=== PATIENT | male | born 1970 | race African-American/Black ===

== ENCOUNTER 2018-05-05 18:56 | Emergency (ER) | payer OTHER ==
--- NOTE | 2018-05-05 19:51 | RAD ---
LEFT KNEE: 05/05/18 Five views. HISTORY: Knee pain. There are mild degenerative changes present. The joint spaces are preserved. Mild spurring seen from the femoral condyles and tibial spines. Evidence of small joint effusion. No fracture or acute abnorm ality. IMPRESSION: Mild degenerative change with evidence of joint effusion. POS: [facility]
[2018-05-05] MEDS ORDERED: Ketorolac Tromethamine 30 MG/ML VIAL ONE (19:56)
== END 2018-05-05 20:30 | disposition home or self-care (01) ==
LOC: ERS 18:56
DX: M25.562 Pain in left knee (principal); I10 Essential (primary) hypertension; F17.210 Nicotine dependence, cigarettes, uncomplicated; F32.9 Major depressive disorder, single episode, unspecified
CPT/HCPCS: 96372; J1885

== ENCOUNTER 2018-06-14 21:30 | Emergency (ER) | payer OTHER ==
--- NOTE | 2018-06-14 23:32 | RAD ---
RIGHT KNEE FOUR VIEW SERIES: INDICATIONS: Right knee pain without injury. FINDINGS: There is mild osteoarthritis. No joint capsular distention. A patellar enthesophyte is seen. IMPRESSION: No acute osseous abnormality of the right knee. POS: [facility]
== END 2018-06-14 23:56 | disposition home or self-care (01) ==
LOC: ERS 21:30
DX: S83.91XA Sprain of unspecified site of right knee, initial encounter (principal); I10 Essential (primary) hypertension; F32.9 Major depressive disorder, single episode, unspecified; F17.210 Nicotine dependence, cigarettes, uncomplicated; Z71.6 Tobacco abuse counseling; X58.XXXA Exposure to other specified factors, initial encounter
CPT/HCPCS: 99406

== ENCOUNTER 2019-06-15 19:24 | Emergency (ER) | payer OTHER ==
[2019-06-15 19:50] LABS: Hemoglobin 14.3 g/dL (14.0-18.0); Mean Corpuscular HGB CONC 35.6 g/dL (32.0-36.0); Mean Corpuscular Hemoglobin 37.3 pg (27.0-31.0); Mean Platelet Volume 6.7 fL (7.4-10.4); Platelet Count 234 thou/uL (130-400); RBC Distribution Width 11.1 % (11.5-14.5); Red Blood Cell (RBC) Count 3.82 mill/uL (4.70-6.10); White Blood Cell (WBC) Count 8.6 thou/uL (4.8-10.8)
[2019-06-15 20:06] LABS: #Basophils 0.1 thou/uL (0.0-0.2); #Eosinphils 0.3 thou/uL (0.0-0.7); #Lymphocytes 2.3 thou/uL (1.20-3.40); #Monocytes 0.4 thou/uL (0.11-0.59); #Neutrophils 5.5 thou/uL (1.40-6.50); %Basophils 0.8 % (0.0-1.0); %Eosinophils 4.1 % (0.0-10.0); %Lymphocytes 26.2 % (21.0-51.0); %Monocytes 4.9 % (0.0-10.0)
[2019-06-15 20:10] LABS: ALT (SGPT) 15 U/L (8-55); AST (SGOT) 18 U/L (5-34); Albumin 4.1 g/dL (3.5-5.0); Alkaline Phosphatase 50 U/L (40-150); Anion Gap 10 mmol/L (10-20); BUN (Urea Nitrogen) 18 mg/dL (8.9-20.6); Bilirubin, Total 0.6 mg/dL (0.2-1.2); CK (CPK) 361 U/L (30-200); Calc. Creatinine Clearance 0 mL/min (70-130); Calcium 9.3 mg/dL (7.8-10.44); Carbon Dioxide 26 mmol/L (22-29); Chloride 106 mmol/L (98-107); Estimated GFR-MDRD 88; Globulin 2.1 g/dL (2.4-3.5); Glucose 115 mg/dL (70-105); Potassium 4.2 mmol/L (3.5-5.1); Protein, Total 6.2 g/dL (6.0-8.3); Sodium 138 mmol/L (136-145)
--- NOTE | 2019-06-15 21:13 | CT ---
CT Brain WO Con HISTORY: Syncope COMPARISON: None. FINDINGS: The ventricular and cisternal system is within normal limits. There are no signs of intrace rebral hemorrhage or extra-axial fluid collections. The mastoid air cells and visualized sinuses are clear. IMPRESSION: No acute intracranial abnormalities.
== END 2019-06-15 22:49 | disposition home or self-care (01) ==
LOC: ERS 19:24
DX: T67.5XXA Heat exhaustion, unspecified, initial encounter (principal); E86.0 Dehydration; I10 Essential (primary) hypertension; F32.9 Major depressive disorder, single episode, unspecified; F17.210 Nicotine dependence, cigarettes, uncomplicated; X30.XXXA Exposure to excessive natural heat, initial encounter
CPT/HCPCS: 36415; 70450; 80053; 82550; 84484; 85025; 93005; 96360

== ENCOUNTER 2019-08-04 13:55 | Emergency (ER) | payer SELFPAY ==
[2019-08-04] MEDS ORDERED: diphenhydrAMINE 50 MG CAP ONE (14:31)
[2019-08-04] MEDS ORDERED: Dexamethasone 10 MG/ML VIAL ONE (14:34)
[2019-08-04] MEDS ORDERED: Famotidine 20 MG TAB ONE (14:34)
== END 2019-08-04 15:26 | disposition home or self-care (01) ==
LOC: ERS 13:55
DX: H02.841 Edema of right upper eyelid (principal); I10 Essential (primary) hypertension; F32.9 Major depressive disorder, single episode, unspecified; F17.210 Nicotine dependence, cigarettes, uncomplicated
CPT/HCPCS: 99283; J1100; Q0163

== ENCOUNTER 2019-08-17 14:32 | Observation (INO) | payer SELFPAY ==
[2019-08-17] MEDS ORDERED: Aspirin Chewable 81 MG TAB ONE (15:30)
[2019-08-17 16:00] LABS: #Basophils 0.1 thou/uL (0.0-0.2); #Eosinphils 0.3 thou/uL (0.0-0.7); #Lymphocytes 1.8 thou/uL (1.20-3.40); #Monocytes 0.3 thou/uL (0.11-0.59); %Basophils 0.8 % (0.0-1.0); %Eosinophils 3.4 % (0.0-10.0); %Lymphocytes 23.6 % (21.0-51.0); %Monocytes 4.5 % (0.0-10.0); %Neutrophils 67.7 % (42.0-75.0); Hemoglobin 14.4 g/dL (14.0-18.0); Mean Corpuscular HGB CONC 33.8 g/dL (32.0-36.0); Mean Corpuscular Hemoglobin 36.3 pg (27.0-31.0); Mean Platelet Volume 7.5 fL (7.4-10.4); Platelet Count 220 thou/uL (130-400); RBC Distribution Width 11.4 % (11.5-14.5); Red Blood Cell (RBC) Count 3.95 mill/uL (4.70-6.10); White Blood Cell (WBC) Count 7.4 thou/uL (4.8-10.8)
--- NOTE | 2019-08-17 16:17 | RAD ---
PORTABLE CHEST: Date: 08/17/19 HISTORY: Hypertension and dizziness. Headache. FINDINGS: Lung tan clear. Heart and mediastinum appear normal. Vasculature normal. IMPRESSION: No acute findings. POS: [facility]
[2019-08-17 16:20] LABS: ALT (SGPT) 17 U/L (8-55); AST (SGOT) 22 U/L (5-34); Albumin 3.9 g/dL (3.5-5.0); Alkaline Phosphatase 46 U/L (40-110); Anion Gap 10 mmol/L (10-20); BUN (Urea Nitrogen) 16 mg/dL (8.9-20.6); Bilirubin, Total 0.8 mg/dL (0.2-1.2); Calc. Creatinine Clearance 0 mL/min (70-130); Calcium 8.8 mg/dL (7.8-10.44); Carbon Dioxide 25 mmol/L (22-29); Chloride 110 mmol/L (98-107); Estimated GFR-MDRD Greater than 90; Globulin 2.1 g/dL (2.4-3.5); Glucose 87 mg/dL (70-105); Potassium 3.8 mmol/L (3.5-5.1); Sodium 141 mmol/L (136-145)
[2019-08-17 16:21] LABS: MDiff Complete? YES; Macrocytosis SLIGHT = 6-15 cells (100X) (0-5/hpf); Platelet Morphology Comment Appears Adequate
--- NOTE | 2019-08-17 16:58 | PDOC.FPRHP ---
- History of Present Illness Chief Complaint: chest pain History of Present Illness: This is a 49yo AA M presenting today for a CC of chest pain. Onset of pain started yesterday during work. It started out with dizziness and seeing spots. It was worse while bending forward. He states then the chest pain came on. He describes this as squeezing type of pain. Associated with L arm numbness and tingling. It did get better after resting. 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 He states he took a couple garlic pills after work and he felt better throughout the night. This morning when he woke up he did not go to work because he started feeling the same type of chest pressure. Patient states that he had a heart attack about 8 years ago - "mild heart attack " and "light stroke." Those events happened at the same time. He had pain in his arm at that time. This episode feels different than the previous heart attack and stroke. At that time he was using drugs and not taking care of himself at that time. Admits to cocaine use at that time. Denies current drug use. Smoke 1pack/day for most of his life. Patient has hx of HTN and he was taking lisinopril for it but has not taken in 3 years. Endorses stress at home - his is and due in 2 months. Currently having chest pain 4/10 but at its worst 10/10. Last saw a PCP in about 5 years. ED Course: ASA, nitro CXR neg for acute process - Allergies/Adverse Reactions Allergies Allergy/AdvReac Type Severity Reaction Status Date / Time No Known Allergies Allergy Unverified 08/17/19 17:36 - Home Medications Medication Instructions Recorded Confirmed Type Lisinopril 10 mg PO DAILY 10/13/15 10/13/15 History - History PMHx: HTN, previous AR/CVA, "borderline diabetic", previous [facility] pt for " bipolar depression" and anxiety PSHx: laparoscopic cholecystectomy FHx: Mother - HTN Uncle: of cancer Social: 1pack/day for 30 years; occasional alcohol; denies current drug use; previous used cocaine and other illicit drugs which caused his first AR - Review of Systems General: denies: fever/chills, weight/appetite/sleep changes, night sweats, fatigue Eyes: reports: vision changes (floaters) ENT: denies: nasal congestion, rhinorrhea Respiratory: denies: cough, congestion, shortness of breath, exercise intolerance Cardiovascular: reports: chest pain. denies: palpitation, edema, paroxysmal nocturnal dyspnea, orthopnea Gastrointestinal: denies: nausea, vomiting, diarrhea, constipation, abdominal pain Genitourinary: reports: polyuria (polydipsia). denies: dysuria Skin: denies: rashes, lesions Musculoskeletal: denies: swelling Neurological: denies: numbness, seizure, weakness Psychological: reports: anxiety, other (Hx of bipolar d/o, previous [facility] patient ). denies: depression - Vital signs BP: 152/99, Pulse: 70, Resp: 17, Pain: 0, O2 sat: 99 on RA, Time: 08/17/2019 16: 26. Weight 84kg - Physical Exam Constitutional: NAD, awake, alert and oriented, well developed HEENT: normocephalic and atraumatic, EOMI, no scleral icterus, grossly normal vision, MMM, good dention, other (mild exophthalmos) Neck: supple, FROM, no thyromegaly Chest: no-tender to palpation, no lesions Heart: RRR, normal S1/S2, no murmurs/rubs/gallops, pulses present, no edema Lungs: CTAB, no respiratory distress, good air movement, no rales/rhonchi, no wheezing, no retractions Abdomen: soft, non-tender, bowel sounds present, no masses/distention Musculoskeletal: normal structure, normal tone, ROM grossly normal, other ( tender to palpation over epigastric area) Neurological: no focal deficit, CN II-XII intact Skin: no rash/lesions, good turgor, capillary refill <2 seconds Heme/Lymphatic: no unusual bruising or bleeding, no purpura, no petechia Psychiatric: normal mood and affect, good judgment and insight, intact recent and remote memory FMR H&P: Results - Labs Result Diagrams: 08/17/19 15:31 08/17/19 15:31 Lab results: WBC 7.4 thou/uL (4.8-10.8) 08/17/19 15:31 Hgb 14.4 g/dL (14.0-18.0) 08/17/19 15:31 Hct 42.4 % (42.0-52.0) 08/17/19 15:31 MCV 107.0 fL (78.0-98.0) H 08/17/19 15:31 Plt Count 220 thou/uL (130-400) 08/17/19 15:31 Neutrophils % 67.7 % (42.0-75.0) 08/17/19 15:31 Sodium 141 mmol/L (136-145) 08/17/19 15:31 Potassium 3.8 mmol/L (3.5-5.1) 08/17/19 15:31 Chloride 110 mmol/L (98-107) H 08/17/19 15:31 Carbon Dioxide 25 mmol/L (22-29) 08/17/19 15:31 BUN 16 mg/dL (8.9-20.6) 08/17/19 15:31 Creatinine 0.88 mg/dL (0.7-1.3) 08/17/19 15:31 Glucose 87 mg/dL (70-105) 08/17/19 15:31 Calcium 8.8 mg/dL (7.8-10.44) 08/17/19 15:31 Total Bilirubin 0.8 mg/dL (0.2-1.2) 08/17/19 15:31 AST 22 U/L (5-34) 08/17/19 15:31 ALT 17 U/L (8-55) 08/17/19 15:31 Alkaline Phosphatase 46 U/L (40-110) 08/17/19 15:31 Serum Total Protein 6.0 g/dL (6.0-8.3) 08/17/19 15:31 Albumin 3.9 g/dL (3.5-5.0) 08/17/19 15:31 - EKG Interpretation EKG: LVH, no ST changes. - Radiology Interpretation Chest x-ray Status: report reviewed by me (no acute process) FMR H&P: A/P - Problem List (1) Chest pain Current Visit: Yes Status: Acute Code(s): R07.9 - CHEST PAIN, UNSPECIFIED (2) Hypertension Current Visit: Yes Status: Acute Code(s): I10 - ESSENTIAL (PRIMARY) HYPERTENSION (3) Tobacco abuse Current Visit: Yes Status: Acute Code(s): Z72.0 - TOBACCO USE (4) History of drug abuse in remission Current Visit: Yes Status: Acute Code(s): F19.11 - OTHER PSYCHOACTIVE SUBSTANCE ABUSE, IN REMISSION - Plan 49 yo Male w/ history of previous AR and "mild stroke"/possible syncope: Atypical Chest Pain - EKG showing LVH. Trop neg x1. HEART SCORE 4 - mod risk. - Will admit to tele, obs - Trend troponins - NPO for stress in the AM - Risk stratify with FLP, TSH, A1c, Mg, phos - Will order lipase 2/2 TTP over epigastric area HTN - Will continue to monitor. If elevated can start lisinopril Tobacco Abuse - Coding Manager on cessation - Nicotine patch PRN Hx of Drug use - aware Code: FULL VTE ppx: SCDs Dispo: admit to tele obs; LOS < 48hrs Case discussed with Dr. Mcpherson Disposition/LOS: telemetry obs FMR H&P: Upper Level - Pertinent history 49yo M with chest pain for the past 2 days. Onset yesterday during work. 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 Patient states pain is pressure like and goes into L arm. Associated with L arm numbness and tingling. No SOB, NVD, no fever/chills. Hx of AR/stroke in the past. Current smoker. Denies weakness. Not necessarily worse with exertion, has come and gone over the 2 days. Denies swelling in extremities. See campus recruiting internship note for full hx. - Pertinent findings PE: General: NAD, well developed HEENT: normocephalic, atraumatic, exopthalmos b/l Cards: NSR, no murmurs, rubs or gallops; no JVD Resp: CTAB Abd: mild TTP of mid epigastrum, no javier, normal BS MSK: no LE swelling - Plan Date/Time: 08/17/19 1652 ISadie MD, have evaluated this patient and agree with findings/plan as outlined by campus recruiting internship resident. Pertinent changes/additions are listed here. Atypical Chest Pain, ACS r/o EKG: LVH, Trop neg x1, CXR normal. HEART SCORE 5- mod risk - Trend trops - schedule exercise stress in AM - UDS pending for hx of drug abuse - Risk stratify: FLP, A1c, TSH - Will order lipase due to TTP of midepigastrum HTN - not currently on meds. Will continue to monitor and start lisinopril if elevated Hx of tobacco use - nicotine patch; certified lactation counselor cessation Hx of drug use - UDS pending Dispo: admit to tele, obs Code: FULL Case discussed with [place] Addendum - Attending - Attending Attestation Date/Time: 08/17/191941 I personally evaluated the patient and discussed the management with Dr. Ferraro and Dr. Bailey I agree with the History, Examination, Assessment and Plan documented above with any addition or exceptions noted below. Chest pain rule out. Stress in AM. ABrayMD
[2019-08-17] MEDS ORDERED: Nitroglycerin 2% Ointment 1 INCH/1 GM Packet ONE (17:07)
[2019-08-17] MEDS ORDERED: Nitroglycerin 0.4 MG TAB (25 Tab Bottle) PO PRN (17:29)
[2019-08-17] MEDS ORDERED: Ondansetron PF 4 MG/2 ML Vial IVP PRN (17:29)
[2019-08-17] MEDS ORDERED: Acetaminophen 325 MG TAB PO PRN (17:29)
[2019-08-17] MEDS ORDERED: Ondansetron ODT 4 MG TAB PO PRN (17:29)
[2019-08-17] MEDS ORDERED: Morphine 2 MG/ML SYRINGE SLOW IVP PRN (17:45)
[2019-08-17] MEDS ORDERED: hydrALAZINE 20 MG/ML VIAL SLOW IVP PRN (17:45)
[2019-08-17 17:55] LABS: Magnesium 2.1 mg/dL (1.6-2.6); Phosphorus 3.4 mg/dL (2.3-4.7)
[2019-08-17] MEDS ORDERED: Lidocaine 2% Viscous Solution 20 ML, Aluminum & Magnesium Hydroxide 30 ML, Donnatal Eli... SSW SCH (18:00)
[2019-08-17 18:11] LABS: Hemoglobin A1c 4.6 % (4.0-6.0)
[2019-08-17 19:09] VITALS: BMI 26.9
[2019-08-17 19:43] LABS: Troponin I 0.021 ng/mL (< 0.028)
[2019-08-17] MEDS ORDERED: Nicotine 14 MG PATCH TD SCH (21:00)
[2019-08-17 21:04] LABS: Free T4 (Free Thyroxine) 0.8 ng/dL (0.70-1.48)
[2019-08-18 04:03] LABS: Cocaine Metabolite Screen Detected (NotDetected); Medtox Reader # READER 4; Phencyclidine (PCP) Not Detected (NotDetected); THC/Cannabinoid Screen Detected (NotDetected)
[2019-08-18 04:04] LABS: Amphetamine Not Detected (NotDetected); Barbiturates Screen Not Detected (NotDetected); Benzodiazepine Screen Not Detected (NotDetected); Medtox Control Line Valid? VALID (VALID); Methadone Not Detected (NotDetected); Methamphetamine Not Detected (NotDetected); Opiate Screen Not Detected (NotDetected); Oxycodone Screen Not Detected (NotDetected); Tricyclic Screen Not Detected (NotDetected)
[2019-08-18 04:32] LABS: #Basophils 0.1 thou/uL (0.0-0.2); #Eosinphils 0.3 thou/uL (0.0-0.7); #Lymphocytes 2.3 thou/uL (1.20-3.40); #Monocytes 0.4 thou/uL (0.11-0.59); #Neutrophils 4.3 thou/uL (1.40-6.50); %Basophils 0.7 % (0.0-1.0); %Eosinophils 4.2 % (0.0-10.0); %Lymphocytes 31.3 % (21.0-51.0); %Monocytes 5.1 % (0.0-10.0); %Neutrophils 58.7 % (42.0-75.0); Hemoglobin 13.4 g/dL (14.0-18.0); Mean Corpuscular HGB CONC 33.6 g/dL (32.0-36.0); Mean Corpuscular Hemoglobin 36.2 pg (27.0-31.0); Mean Platelet Volume 6.9 fL (7.4-10.4); Platelet Count 212 thou/uL (130-400); RBC Distribution Width 11.2 % (11.5-14.5); Red Blood Cell (RBC) Count 3.69 mill/uL (4.70-6.10); White Blood Cell (WBC) Count 7.3 thou/uL (4.8-10.8)
[2019-08-18 04:56] LABS: Anion Gap 8 mmol/L (10-20); BUN (Urea Nitrogen) 15 mg/dL (8.9-20.6); Calc. Creatinine Clearance 110 mL/min (70-130); Calcium 8.6 mg/dL (7.8-10.44); Carbon Dioxide 27 mmol/L (22-29); Cardiac Risk 3.3 (Less than 4.5); Chloride 110 mmol/L (98-107); Cholesterol 125 mg/dl (< 200 Desired); Estimated GFR-MDRD Greater than 90; Glucose 102 mg/dL (70-105); HDL Cholesterol 38 mg/dL (>60 Neg Risk); LDL Cholesterol, Calculated 79 mg/dL; Potassium 3.9 mmol/L (3.5-5.1); Sodium 141 mmol/L (136-145); Triglycerides 40 mg/dL (Less than 150)
--- NOTE | 2019-08-18 06:18 | PDOC.FM ---
- Subjective Subjective: Pt is asymptomatic this morning. Chest pain has resolved. Nitro patch was discontinued because he started having a headache. Wanted to know if he should go to work today if he is discharged. Informed pt that he should not go to work today and rest over the weekend. He is wondering about the treadmill stress test because all he has here are his steel-toed boots. Told him we may do the pharm stress test instead. Discussed his drug use and avoiding taking hits off friends as these could be laced w/ cocaine which is very detrimental for his heart. He expressed understanding and voiced he was going to "quit everything." - Objective MAR Reviewed: Yes Vital Signs & Weight: Vital Signs (12 hours) Temp Pulse Resp BP Pulse Ox 08/18/19 04:18 98.3 F 51 L 14 131/65 100 08/17/19 18:50 98.4 F 59 L 17 141/82 H 98 Weight Weight 87.634 kg I&O: 08/16/19 08/17/19 08/18/19 06:59 06:59 06:59 Intake Total 360 Output Total 250 Balance 110 Result Diagrams: 08/18/19 04:21 08/18/19 04:21 Phys Exam - Physical Examination Constitutional: NAD Respiratory: no wheezing, clear to auscultation bilateral Cardiovascular: RRR, no significant murmur, no rub Gastrointestinal: soft, non-tender, no distention, positive bowel sounds Musculoskeletal: no edema Psychiatric: normal affect, A&O x 3 Skin: no rash Dx/Plan (1) Chest pain Code(s): R07.9 - CHEST PAIN, UNSPECIFIED Status: Acute (2) Hypertension Code(s): I10 - ESSENTIAL (PRIMARY) HYPERTENSION Status: Acute (3) Tobacco abuse Code(s): Z72.0 - TOBACCO USE Status: Acute (4) History of drug abuse in remission Code(s): F19.11 - OTHER PSYCHOACTIVE SUBSTANCE ABUSE, IN REMISSION Status: Acute - Plan Plan: 49 yo Male w/ history of previous [place] and "mild stroke"/possible syncope: Atypical Chest Pain - EKG showing LVH. Trop neg x2. HEART SCORE 4 - mod risk. - Will admit to tele, obs - Trend troponins - NPO for stress test today. May do treadmill or pharm test - If normal stress, d/c today. Will write work note for the patient. - Lipase neg. A1C 4.6, FLP wnl, troponins neg Subclinical hyperthyroidism - TSH low, free T4 normal Macrocytosis - will order HIV test HTN - Will continue to monitor. 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
[2019-08-18] MEDS ORDERED: Aspirin 325 mg Enteric Coated Tablet PO SCH (09:00)
[2019-08-18 10:01] LABS: HIV (1/2) Antibody/Antigen Non-Reactive (NonReactive); HIV 1/2 INDEX 0.07 S/CO (<1.00)
--- NOTE | 2019-08-18 12:12 | PRG ---
DATE OF SERVICE: 08/18/2019 Mr. Mcdonald is a 49-year-old man, who came in with chest pain yesterday. He states that this seems to be exertional with a squeezing-type pain that is relieved with rest. He has been scheduled for a stress Myoview and is currently at that procedure. His initial troponins are less than 0.01. Further evaluation depend upon results of stress test. Job ID: [id number]
[2019-08-18 14:29] VITALS: TEMP 98.4
--- NOTE | 2019-08-18 14:40 | NM ---
NUCLEAR MEDICINE CARDIAC MYOCARDIAL PERFUSION SPECT EJECTION FRACTION STUDY WALL MOTION CINE: DATE: 08/18/2019 HISTORY: 49-year-old male smoker with coronary artery disease, prior myocardial infarction, hypertension, CVA, presents with chest pain. TECHNIQUE: Number of days: 1 Rest study: Technetium 99m-sestamibi (Cardiolite) dose: 9.3 mCi Exercise stress: Treadmill Stress study: Technetium 99m-sestamibi (Cardiolite) dose: 29.0 mCi FINDINGS: CARDIAC (MYOCARDIAL PERFUSION) SPECT There are no reversible myocardial perfusion defects. EJECTION FRACTION STUDY Left ventricular EF = 57 % WALL MOTION CINE Hypokinesis of septum. The rest of left ventricle moves normally. IMPRESSION: No evidence of reversible ischemia.
--- NOTE | 2019-08-18 15:47 | PDOC.EVN ---
Event Note - Event Note Event Note: Please excuse Mr. Mendez Mcdonald from work duties as he was in the hospital from 08/17/2019 - 08/18/2019. He may return to work on 08/21/2019, without restrictions. Please call [phone] if you have any questions. Thank you. Jeana Ferraro MD [facility]
[2019-08-18 16:19] VITALS: BP 146/78
--- NOTE | 2019-08-21 01:38 | DIS ---
DATE OF ADMISSION: 08/17/2019 DATE OF DISCHARGE: 08/18/2019 ADMITTING ATTENDING: Luda Mcpherson MD DISCHARGE ATTENDING: Gino Cyr MD RESIDENT: Jeana Ferraro MD CONSULTS: None. PROCEDURES PERFORMED: 1. Chest x-ray on admission: no acute findings. 2. EKG on admission: no changes, no acute abnormalities. 3. Nuclear medicine stress test: no evidence of reversible ischemia. Estimated left ventricular ejection fraction 57%. PRIMARY DIAGNOSIS: Atypical chest pain. SECONDARY DIAGNOSES: 1. Hypertension. 2. Tobacco abuse. 3. Cannabinoid and cocaine use. 4. History of drug abuse in remission. DISCHARGE MEDICATIONS: Lisinopril 10 mg p.o. daily. DISCONTINUED MEDICATIONS: None. HISTORY OF PRESENT ILLNESS/HOSPITAL COURSE: This is a pleasant 49-year-old male , who presented for chest pain which started the day prior during work. It had started with some dizziness and "floaters" in his vision. 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 He described the pain as a squeezing type of 10/10 severity at its worst. Associated with left arm numbness and tingling, improved after rest. At home that evening, he took a couple of garlic pills which seemed to help him throughout the night. However, the morning of admission, the patient had the same symptoms again and left work to come to the ED. The patient has a history of myocardial infarction somewhere between 8 and 15 years ago, which may or may not have been associated with CVA. Patient described it as a "light stroke," but this could have been syncope secondary to the [place]. This episode occurred in a different city and records were not available during this admission. The patient openly admitted to using crack cocaine in the years surrounding his previous myocardial infarction and reports he was not taking care of himself at that time. However, he currently denies continued drug use and is in remission. He has a at home. He currently smokes one pack of cigarettes per day. He does not drink. The patient does state he has had a diagnosis of hypertension and was supposed to be taking lisinopril, but has not taken this for the past 3-5 years. The patient does report increased stress at home, particularly with his being who is due to deliver in two months. Upon admission, his chest pain was 4/10 at its worst and had completely resolved with nitroglycerin patch. The patient was given aspirin and nitroglycerin in the ED. Throughout admission, the patient's blood pressure remained in the 140s/70s consistently. A nuclear stress test was performed the day after admission and showed no evidence of reversible ischemia. The stress test was performed because the patient had a HEART score of 4 due to his smoking history and hypertension history, which are atherosclerotic risk factors. Patient's urine drug screen was positive for cannabinoids and cocaine. PHYSICAL EXAMINATION: GENERAL: Well-appearing. RESPIRATORY: Nonlabored breathing. CARDIAC: Regular rate and rhythm, S1 and S2 heard. No murmur. EXTREMITIES: Warm and well perfused. No edema. ABDOMEN: Soft, nondistended, and nontender. PSYCH: Normal mood, congruent affect. Alert and oriented x4. DISPOSITION: Stable. DISCHARGE INSTRUCTIONS: 1. Location: Home. 2. Diet: Heart healthy diet. 3. Activity: As tolerated. It was recommended that the patient do not return to work the day of discharge. He works second shift which starts at 3:00 p.m. He does not work weekends. It was recommended to the patient that he take the weekend to rest and then return to work on Wednesday. 4. Followup: Follow up with primary care provider on Wednesday. We will discharge the patient with lisinopril to begin treating his hypertension. Job ID: [id number] [facility]
== END 2019-08-18 17:02 | disposition home or self-care (01) ==
LOC: ERS 14:32 → 2SW 17:00
PROVIDERS: ADMIT Student in an Organized Health Care Education/Training Program; ATTEND Student in an Organized Health Care Education/Training Program
DX: R07.89 Other chest pain (principal); I10 Essential (primary) hypertension; F17.210 Nicotine dependence, cigarettes, uncomplicated; I25.2 Old myocardial infarction; F41.9 Anxiety disorder, unspecified; E05.90 Thyrotoxicosis, unspecified without thyrotoxic crisis or storm; F19.11 Other psychoactive substance abuse, in remission; D75.89 Other specified diseases of blood and blood-forming organs; Z86.73 Personal history of transient ischemic attack (TIA), and cerebral infarction without residual deficits; Z91.14 Patient's other noncompliance with medication regimen
CPT/HCPCS: 36415; 71045; 78452; 80048; 80053; 80061; 80306; 82607; 82746; 82977; 83036; 83690; 83735; 83880; 84100; 84439; 84443; 84484; 85025; 87389; 93005; 93017; 94760; A9500; G0378

== ENCOUNTER 2019-12-13 19:09 | Emergency (ER) | payer SELFPAY | END 2019-12-13 22:40 | disposition home or self-care (01) | LOC: ERS 19:09 | DX: J11.1 Influenza due to unidentified influenza virus with other respiratory manifestations (principal); I25.2 Old myocardial infarction; I10 Essential (primary) hypertension; F31.9 Bipolar disorder, unspecified; F17.210 Nicotine dependence, cigarettes, uncomplicated; Z86.73 Personal history of transient ischemic attack (TIA), and cerebral infarction without residual deficits; Z79.899 Other long term (current) drug therapy | CPT/HCPCS: 87804; 94640; J7620 ==

== ENCOUNTER 2020-01-02 14:11 | Emergency (ER) | payer BC, SELFPAY ==
[2020-01-02] MEDS ORDERED: Ketorolac Tromethamine 30 MG/ML VIAL ONE (14:42)
[2020-01-02] MEDS ORDERED: Cyclobenzaprine 10 MG TAB ONE (14:42)
== END 2020-01-02 14:59 | disposition home or self-care (01) ==
LOC: ERS 14:11
DX: M54.6 Pain in thoracic spine (principal); I25.2 Old myocardial infarction; I10 Essential (primary) hypertension; Z86.73 Personal history of transient ischemic attack (TIA), and cerebral infarction without residual deficits; F31.9 Bipolar disorder, unspecified; F17.210 Nicotine dependence, cigarettes, uncomplicated; Z79.899 Other long term (current) drug therapy
CPT/HCPCS: 96372; J1885

== ENCOUNTER 2020-02-05 17:12 | Emergency (ER) | payer BC | END 2020-02-05 18:10 | disposition home or self-care (01) | LOC: ERS 17:12 | DX: R10.32 Left lower quadrant pain (principal); I25.2 Old myocardial infarction; Z86.73 Personal history of transient ischemic attack (TIA), and cerebral infarction without residual deficits; I10 Essential (primary) hypertension; F31.9 Bipolar disorder, unspecified; F17.210 Nicotine dependence, cigarettes, uncomplicated; Z79.899 Other long term (current) drug therapy | CPT/HCPCS: 99283 ==

== ENCOUNTER 2020-03-07 17:27 | Emergency (ER) | payer BC ==
--- NOTE | 2020-03-07 17:54 | RAD ---
CHEST ONE VIEW: 03/07/20 HISTORY: Chest pain. COMPARISON: Radiograph 08/17/19. FINDINGS: The lungs are clear. No pneumothorax or effusion. The cardiac silhouette and mediastinal contours are within normal limits. No acute osseous abnormality. IMPRESSION: No acute intrathoracic abnormality. POS: HOME
[2020-03-07 18:00] LABS: #Eosinphils 0.5 thou/uL (0.0-0.7); #Monocytes 0.3 thou/uL (0.11-0.59); #Neutrophils 4.1 thou/uL (1.40-6.50); %Basophils 0.3 % (0.0-1.0); %Eosinophils 6.6 % (0.0-10.0); %Lymphocytes 29.7 % (21.0-51.0); %Monocytes 4.4 % (0.0-10.0); Hemoglobin 13.6 g/dL (14.0-18.0); Mean Corpuscular HGB CONC 32.4 g/dL (32.0-36.0); Mean Corpuscular Hemoglobin 35.1 pg (27.0-31.0); Mean Platelet Volume 7.4 fL (7.4-10.4); Platelet Count 227 thou/uL (130-400); RBC Distribution Width 11.4 % (11.5-14.5); Red Blood Cell (RBC) Count 3.87 mill/uL (4.70-6.10); White Blood Cell (WBC) Count 6.9 thou/uL (4.8-10.8)
[2020-03-07] MEDS ORDERED: Aspirin Chewable 81 MG TAB ONE (18:07)
[2020-03-07] MEDS ORDERED: Nitroglycerin 2% Ointment 1 INCH/1 GM Packet ONE (18:07)
[2020-03-07 18:13] LABS: ALT (SGPT) 14 U/L (8-55); AST (SGOT) 19 U/L (5-34); Albumin 4.4 g/dL (3.5-5.0); Alkaline Phosphatase 62 U/L (40-110); Anion Gap 13 mmol/L (10-20); BUN (Urea Nitrogen) 15 mg/dL (8.9-20.6); Bilirubin, Total 0.7 mg/dL (0.2-1.2); Calc. Creatinine Clearance 0 mL/min (70-130); Carbon Dioxide 23 mmol/L (22-29); Chloride 111 mmol/L (98-107); Estimated GFR-MDRD Greater than 90; Globulin 2.3 g/dL (2.4-3.5); Glucose 141 mg/dL (70-105); Potassium 3.6 mmol/L (3.5-5.1); Protein, Total 6.7 g/dL (6.0-8.3); Sodium 143 mmol/L (136-145)
[2020-03-07 18:25] LABS: MDiff Complete? YES; Macrocytosis SLIGHT = 6-15 cells (100X) (0-5/hpf); Platelet Morphology Comment Appears Adequate; Polychromasia SLIGHT = 2-3 cells (100X) (0-2/hpf)
== END 2020-03-07 20:45 | disposition home or self-care (01) ==
LOC: ERS 17:27
DX: R07.89 Other chest pain (principal); I25.2 Old myocardial infarction; I10 Essential (primary) hypertension; F31.9 Bipolar disorder, unspecified; F17.210 Nicotine dependence, cigarettes, uncomplicated; Z86.73 Personal history of transient ischemic attack (TIA), and cerebral infarction without residual deficits
CPT/HCPCS: 71045; 80053; 83690; 83880; 84484; 85025; 93005

== ENCOUNTER 2020-05-01 18:44 | Emergency (ER) | payer BC, OTHER ==
[2020-05-02 15:34] LABS: SARS-CoV-2 MS2 Positive; SARS-CoV-2 N Gene Negative; SARS-CoV-2 S Gene Negative; SARS-CoV-2 orf1ab Negative
== END 2020-05-01 19:05 | disposition home or self-care (01) ==
LOC: ERS 18:44
DX: R19.7 Diarrhea, unspecified (principal); R11.0 Nausea; I25.2 Old myocardial infarction; I10 Essential (primary) hypertension; F31.9 Bipolar disorder, unspecified; F17.210 Nicotine dependence, cigarettes, uncomplicated; Z79.899 Other long term (current) drug therapy; Z86.73 Personal history of transient ischemic attack (TIA), and cerebral infarction without residual deficits; Z20.828 Contact with and (suspected) exposure to other viral communicable diseases
CPT/HCPCS: 87635; 99283; U0003

== ENCOUNTER 2020-05-18 18:33 | Emergency (ER) | payer BC, SELFPAY ==
[2020-05-18 19:10] LABS: #Basophils 0.1 thou/uL (0.0-0.2); #Eosinphils 0.3 thou/uL (0.0-0.7); #Lymphocytes 2.1 thou/uL (1.20-3.40); #Monocytes 0.4 thou/uL (0.11-0.59); #Neutrophils 4.7 thou/uL (1.40-6.50); %Eosinophils 4.5 % (0.0-10.0); %Lymphocytes 27.4 % (21.0-51.0); %Monocytes 4.7 % (0.0-10.0); %Neutrophils 62.4 % (42.0-75.0); Hemoglobin 14.1 g/dL (14.0-18.0); Mean Corpuscular HGB CONC 34.2 g/dL (32.0-36.0); Mean Corpuscular Hemoglobin 36.5 pg (27.0-31.0); Mean Platelet Volume 7.9 fL (7.4-10.4); Platelet Count 138 thou/uL (130-400); RBC Distribution Width 11.1 % (11.5-14.5); Red Blood Cell (RBC) Count 3.87 mill/uL (4.70-6.10); White Blood Cell (WBC) Count 7.5 thou/uL (4.8-10.8)
[2020-05-18 19:27] LABS: MDiff Complete? YES; Macrocytosis SLIGHT = 6-15 cells (100X) (0-5/hpf); Platelet Morphology Comment Appears Adequate
[2020-05-18 19:28] LABS: ALT (SGPT) 15 U/L (8-55); AST (SGOT) 24 U/L (5-34); Albumin 4.3 g/dL (3.5-5.0); Alkaline Phosphatase 65 U/L (40-110); Anion Gap 14 mmol/L (10-20); BUN (Urea Nitrogen) 19 mg/dL (8.4-25.7); Bilirubin, Total 0.9 mg/dL (0.2-1.2); CK (CPK) 466 U/L (30-200); Calc. Creatinine Clearance 0 mL/min (70-130); Calcium 9.6 mg/dL (7.8-10.44); Carbon Dioxide 20 mmol/L (22-29); Chloride 110 mmol/L (98-107); Estimated GFR-MDRD Greater than 90; Globulin 2.8 g/dL (2.4-3.5); Glucose 101 mg/dL (70-105); Potassium 4.6 mmol/L (3.5-5.1); Protein, Total 7.1 g/dL (6.0-8.3); Sodium 139 mmol/L (136-145)
== END 2020-05-18 20:47 | disposition home or self-care (01) ==
LOC: ERS 18:33
DX: T67.5XXA Heat exhaustion, unspecified, initial encounter (principal); I25.2 Old myocardial infarction; I10 Essential (primary) hypertension; F31.9 Bipolar disorder, unspecified; F17.210 Nicotine dependence, cigarettes, uncomplicated; Z86.73 Personal history of transient ischemic attack (TIA), and cerebral infarction without residual deficits; Z79.899 Other long term (current) drug therapy; W92.XXXA Exposure to excessive heat of man-made origin, initial encounter; Y92.59 Other trade areas as the place of occurrence of the external cause; Y99.0 Civilian activity done for income or pay
CPT/HCPCS: 80053; 82550; 85025; 96360; 96361

== ENCOUNTER 2020-12-23 07:50 | Emergency (ER) | payer BC, SELFPAY ==
[2020-12-23] MEDS ORDERED: Ketorolac Tromethamine 30 MG/ML VIAL ONE (08:56)
== END 2020-12-23 09:16 | disposition home or self-care (01) ==
LOC: ERS 07:50
DX: K04.7 Periapical abscess without sinus (principal); I25.2 Old myocardial infarction; I10 Essential (primary) hypertension; Z86.73 Personal history of transient ischemic attack (TIA), and cerebral infarction without residual deficits; F17.210 Nicotine dependence, cigarettes, uncomplicated
CPT/HCPCS: 96372; 99283; J1885

== ENCOUNTER 2021-01-20 23:03 | Emergency (ER) | payer BC ==
[2021-01-20 23:56] LABS: #Basophils 0.1 thou/uL (0.0-0.2); #Eosinphils 0.3 thou/uL (0.0-0.7); #Lymphocytes 2.7 thou/uL (1.20-3.40); #Monocytes 0.4 thou/uL (0.11-0.59); #Neutrophils 4.2 thou/uL (1.40-6.50); %Basophils 1.3 % (0.0-1.0); %Lymphocytes 34.9 % (21.0-51.0); %Monocytes 4.8 % (0.0-10.0); %Neutrophils 54.9 % (42.0-75.0); Hemoglobin 13.8 g/dL (14.0-18.0); Mean Corpuscular HGB CONC 33.4 g/dL (32.0-36.0); Mean Platelet Volume 7.3 fL (7.4-10.4); Platelet Count 222 thou/uL (130-400); RBC Distribution Width 11.2 % (11.5-14.5); Red Blood Cell (RBC) Count 3.85 mill/uL (4.70-6.10); White Blood Cell (WBC) Count 7.7 thou/uL (4.8-10.8)
[2021-01-21] MEDS ORDERED: Aspirin Chewable 81 MG TAB ONE (00:10)
[2021-01-21 00:17] LABS: ALT (SGPT) 17 U/L (8-55); AST (SGOT) 21 U/L (5-34); Albumin 4.3 g/dL (3.5-5.0); Alkaline Phosphatase 60 U/L (40-110); Anion Gap 14 mmol/L (10-20); BUN (Urea Nitrogen) 12 mg/dL (8.4-25.7); Bilirubin, Total 0.8 mg/dL (0.2-1.2); CK (CPK) 500 U/L (30-200); Calc. Creatinine Clearance 0 mL/min (70-130); Calcium 9.2 mg/dL (7.8-10.44); Carbon Dioxide 24 mmol/L (22-29); Chloride 107 mmol/L (98-107); Globulin 2.7 g/dL (2.4-3.5); Glucose 90 mg/dL (70-105); Potassium 4.4 mmol/L (3.5-5.1); Sodium 141 mmol/L (136-145)
== END 2021-01-21 00:48 | disposition home or self-care (01) ==
LOC: ERS 23:03
DX: R07.9 Chest pain, unspecified (principal); I10 Essential (primary) hypertension; I25.2 Old myocardial infarction; F17.210 Nicotine dependence, cigarettes, uncomplicated; Z86.73 Personal history of transient ischemic attack (TIA), and cerebral infarction without residual deficits
CPT/HCPCS: 36415; 71045; 80053; 82550; 84484; 85025; 93005

== ENCOUNTER 2021-02-15 09:15 | Emergency (ER) | payer BC ==
[2021-02-15] MEDS ORDERED: Labetalol HCl 100 MG/20 ML VIAL ONE (09:42)
[2021-02-15 09:49] LABS: #Basophils 0.1 thou/uL (0.0-0.2); #Eosinphils 0.3 thou/uL (0.0-0.7); #Monocytes 0.3 thou/uL (0.11-0.59); %Basophils 0.8 % (0.0-1.0); %Eosinophils 4.2 % (0.0-10.0); %Lymphocytes 29.9 % (21.0-51.0); %Monocytes 4.8 % (0.0-10.0); %Neutrophils 60.4 % (42.0-75.0); Hemoglobin 14.7 g/dL (14.0-18.0); Mean Corpuscular Hemoglobin 36.3 pg (27.0-31.0); Mean Platelet Volume 7.2 fL (7.4-10.4); Platelet Count 213 thou/uL (130-400); RBC Distribution Width 11.2 % (11.5-14.5); Red Blood Cell (RBC) Count 4.05 mill/uL (4.70-6.10); White Blood Cell (WBC) Count 6.6 thou/uL (4.8-10.8)
[2021-02-15 10:10] LABS: ALT (SGPT) 14 U/L (8-55); AST (SGOT) 21 U/L (5-34); Albumin 4.3 g/dL (3.5-5.0); Alkaline Phosphatase 67 U/L (40-110); Anion Gap 12 mmol/L (10-20); BUN (Urea Nitrogen) 17 mg/dL (8.4-25.7); Bilirubin, Total 1.2 mg/dL (0.2-1.2); Calc. Creatinine Clearance 0 mL/min (70-130); Calcium 9.3 mg/dL (7.8-10.44); Carbon Dioxide 24 mmol/L (22-29); Chloride 108 mmol/L (98-107); Globulin 2.7 g/dL (2.4-3.5); Glucose 113 mg/dL (70-105); Sodium 140 mmol/L (136-145)
[2021-02-15] MEDS ORDERED: Aspirin 325 MG TAB ONE (10:36)
[2021-02-15] MEDS ORDERED: Aspirin Chewable 81 MG TAB ONE ×3 (10:41→10:43)
[2021-02-15 12:44] LABS: Troponin I 0.018 ng/mL (< 0.028)
== END 2021-02-15 13:01 | disposition home or self-care (01) ==
LOC: ERS 09:15
DX: R07.89 Other chest pain (principal); I10 Essential (primary) hypertension; I25.2 Old myocardial infarction; Z86.73 Personal history of transient ischemic attack (TIA), and cerebral infarction without residual deficits; F17.210 Nicotine dependence, cigarettes, uncomplicated; Z79.82 Long term (current) use of aspirin
CPT/HCPCS: 36415; 70450; 71045; 80053; 84443; 84484; 85025; 93005; 94760

== ENCOUNTER 2021-04-17 17:34 | Emergency (ER) | payer BC ==
[2021-04-17 18:34] LABS: #Eosinphils 0.3 thou/uL (0.0-0.7); #Lymphocytes 2.5 thou/uL (1.20-3.40); #Monocytes 0.4 thou/uL (0.11-0.59); #Neutrophils 3.8 thou/uL (1.40-6.50); %Basophils 0.2 % (0.0-1.0); %Eosinophils 4.8 % (0.0-10.0); %Lymphocytes 35.2 % (21.0-51.0); %Monocytes 5.5 % (0.0-10.0); %Neutrophils 54.4 % (42.0-75.0); Hemoglobin 12.9 g/dL (14.0-18.0); Mean Corpuscular HGB CONC 33.8 g/dL (32.0-36.0); Mean Corpuscular Hemoglobin 36.3 pg (27.0-31.0); Mean Platelet Volume 7.1 fL (7.4-10.4); Platelet Count 210 thou/uL (130-400); RBC Distribution Width 11.3 % (11.5-14.5); Red Blood Cell (RBC) Count 3.54 mill/uL (4.70-6.10)
[2021-04-17 18:44] LABS: ALT (SGPT) 13 U/L (8-55); AST (SGOT) 16 U/L (5-34); Albumin 4.1 g/dL (3.5-5.0); Alkaline Phosphatase 60 U/L (40-110); Anion Gap 9 mmol/L (10-20); BUN (Urea Nitrogen) 16 mg/dL (8.4-25.7); Bilirubin, Total 0.6 mg/dL (0.2-1.2); CK (CPK) 304 U/L (30-200); Calc. Creatinine Clearance 0 mL/min (70-130); Carbon Dioxide 26 mmol/L (22-29); Chloride 110 mmol/L (98-107); Globulin 2.6 g/dL (2.4-3.5); Glucose 94 mg/dL (70-105); Protein, Total 6.7 g/dL (6.0-8.3); Sodium 141 mmol/L (136-145)
[2021-04-17 18:56] LABS: MDiff Complete? YES; Macrocytosis SLIGHT = 6-15 cells (100X) (0-5/hpf); Platelet Morphology Comment Appears Adequate; Polychromasia SLIGHT = 2-3 cells (100X) (0-2/hpf)
== END 2021-04-17 20:22 | disposition home or self-care (01) ==
LOC: ERS 17:34
DX: T67.5XXA Heat exhaustion, unspecified, initial encounter (principal); E86.0 Dehydration; I10 Essential (primary) hypertension; I25.2 Old myocardial infarction; Z86.73 Personal history of transient ischemic attack (TIA), and cerebral infarction without residual deficits; F17.210 Nicotine dependence, cigarettes, uncomplicated; Z79.899 Other long term (current) drug therapy; Z79.82 Long term (current) use of aspirin
CPT/HCPCS: 36415; 80053; 82550; 84484; 85025; 93005; 94760

== ENCOUNTER 2021-07-10 16:20 | Emergency (ER) | payer BC ==
[2021-07-10] MEDS ORDERED: HYDROcodone/Acetaminophen 5/325 mg Tablet ONE (18:39)
== END 2021-07-10 18:46 | disposition home or self-care (01) ==
LOC: ERS 16:20
DX: M25.561 Pain in right knee (principal); K04.7 Periapical abscess without sinus; K02.9 Dental caries, unspecified; I25.2 Old myocardial infarction; I10 Essential (primary) hypertension; F17.210 Nicotine dependence, cigarettes, uncomplicated; Z86.73 Personal history of transient ischemic attack (TIA), and cerebral infarction without residual deficits; Z79.899 Other long term (current) drug therapy

== ENCOUNTER 2021-08-21 10:15 | Emergency (ER) | payer BC ==
[2021-08-21] MEDS ORDERED: Ketorolac Tromethamine 30 MG/ML VIAL ONE (11:14)
== END 2021-08-21 11:30 | disposition home or self-care (01) ==
LOC: ERS 10:15
DX: M72.2 Plantar fascial fibromatosis (principal); I25.2 Old myocardial infarction; I10 Essential (primary) hypertension; F17.210 Nicotine dependence, cigarettes, uncomplicated; Z79.899 Other long term (current) drug therapy
CPT/HCPCS: 96372; J1885

== ENCOUNTER 2022-06-19 20:21 | Emergency (ER) | payer BC ==
[2022-06-19] MEDS ORDERED: Ketorolac Tromethamine 30 MG/ML VIAL ONE (20:52)
== END 2022-06-19 21:16 | disposition home or self-care (01) ==
LOC: ERS 20:21
DX: K02.9 Dental caries, unspecified (principal); I10 Essential (primary) hypertension; I25.2 Old myocardial infarction; F17.210 Nicotine dependence, cigarettes, uncomplicated; Z86.73 Personal history of transient ischemic attack (TIA), and cerebral infarction without residual deficits
CPT/HCPCS: 96372; 99282; J1885

== ENCOUNTER 2023-05-26 19:47 | Emergency (ER) | payer BC | END 2023-05-26 21:31 | disposition home or self-care (01) | LOC: ERS 19:47 | DX: M72.2 Plantar fascial fibromatosis (principal); I10 Essential (primary) hypertension; F17.210 Nicotine dependence, cigarettes, uncomplicated; Z79.899 Other long term (current) drug therapy | CPT/HCPCS: 99283 ==